=== PATIENT | female | born 1995 | race Caucasian/White ===

== ENCOUNTER 2022-08-18 06:00 | Inpatient (IN) | payer OTHER ==
[2022-08-18] MEDS ORDERED: Ibuprofen 800 MG TAB PO PRN (06:24)
[2022-08-18] MEDS ORDERED: Carboprost 250 MCG/ML AMP IM PRN (06:24)
[2022-08-18] MEDS ORDERED: NS w/ Oxytocin 30 units 500 ML IV SCH ×3 (06:24→18:31)
[2022-08-18] MEDS ORDERED: hydrALAZINE 20 MG/ML VIAL SLOW IVP PRN ×2 (06:24→18:31)
[2022-08-18] MEDS ORDERED: Butorphanol Tartrate 1 MG/ML VIAL SLOW IVP PRN (06:24)
[2022-08-18] MEDS ORDERED: Acetaminophen/Codeine 30-300mg Tablet PO PRN (06:24)
[2022-08-18] MEDS ORDERED: Promethazine HCl 25 MG/ML VIAL IM PRN ×2 (06:24→18:31)
[2022-08-18] MEDS ORDERED: Acetaminophen 500 MG TAB PO PRN (06:24)
[2022-08-18] MEDS ORDERED: Lidocaine 1% (PF) 30 ML VIAL SC PRN (06:24)
[2022-08-18] MEDS ORDERED: Methylergonovine 0.2 MG/ML VIAL IM PRN (06:24)
[2022-08-18] MEDS ORDERED: Ondansetron PF 4 MG/2 ML Vial IVP PRN ×2 (06:24→18:31)
[2022-08-18] MEDS ORDERED: HYDROcodone/Acetaminophen 5/325 mg Tablet PO PRN ×2 (06:24→18:31)
[2022-08-18] MEDS ORDERED: Diphenoxylate HCl/Atropine Tablet PO PRN (06:24)
[2022-08-18] MEDS ORDERED: Lactated Ringer's 1,000 ML IV SCH (06:24)
[2022-08-18 07:53] VITALS: BMI 29.3
[2022-08-18] MEDS ORDERED: NS w/ Oxytocin 30 units 500 ML ONE (07:55)
[2022-08-18] MEDS ORDERED: ePHEDrine Sulfate 50 MG/10 ML VIAL ONE (08:00)
[2022-08-18] MEDS ORDERED: Bupivacaine HCl 0.5%/Epinephrine 1:200,000/PF 30 ml Vial ONE (08:00)
[2022-08-18 09:07] LABS: Hemoglobin 11.1 g/dL (12.0-15.5); Mean Corpuscular HGB CONC 32.9 g/dL (32.0-36.0); Mean Corpuscular Hemoglobin 26.4 pg (27.0-33.0); Mean Platelet Volume 9.6 fl (7.4-10.4); Platelet Count 241 10x3/uL (150-450); RBC Distribution Width 13.6 % (11.5-14.5); Red Blood Cell (RBC) Count 4.21 10x6/uL (3.90-5.03); White Blood Cell (WBC) Count 9.7 10x3/uL (3.5-10.5)
[2022-08-18 09:39] LABS: SARS-CoV-2 NAA Rapid Test Not Detected (NotDetected)
[2022-08-18 09:43] LABS: HBSAg Index 0.14 S/CO (0-0.99); HIV (1/2) Antibody/Antigen Non-Reactive (NonReactive); HIV 1/2 INDEX 0.15 S/CO (<1.00); Hep B Surf Ag Non-Reactive S/CO (NonReactive)
[2022-08-18 09:44] LABS: Syphilis Antibody Nonreactive (Nonreactive); Syphilis Antibody Index 0.02 S/CO (<1.00 Non-Reactive)
[2022-08-18] MEDS ORDERED: Fentanyl 2 mcg/Bup 0.1% Cadd 100 ML ONE (12:37)
[2022-08-18] MEDS ORDERED: Butorphanol Tartrate 1 MG/ML VIAL ONE (12:44)
[2022-08-18] MEDS ORDERED: Bisacodyl 10 MG SUPP PR PRN (18:31)
[2022-08-18] MEDS ORDERED: Boostrix 0.5 ML (Tdap) VIAL (>/=7 yrs of age) IM ONE (18:31)
[2022-08-18] MEDS ORDERED: Lanolin Ointment 7 GM TUBE TOP PRN (18:31)
[2022-08-18] MEDS ORDERED: Milk Of Magnesia 30 ML UDCUP PO PRN (18:31)
[2022-08-18] MEDS ORDERED: Benzocaine-Menthol 82.5 ML CAN TOP PRN (18:31)
[2022-08-18] MEDS ORDERED: diphenhydrAMINE 25 MG CAP PO PRN (18:31)
[2022-08-18] MEDS ORDERED: Ibuprofen 800 MG TAB PO SCH ×2 (19:45→22:00)
[2022-08-18] MEDS: Docusate 100 MG CAP PO SCH (21:30)
[2022-08-19] MEDS: Ibuprofen 800 MG TAB PO SCH ×3 (04:38→20:35)
[2022-08-19] MEDS: HYDROcodone/Acetaminophen 5/325 mg Tablet PO PRN ×2 (06:31→17:38)
[2022-08-19] MEDS: Ferrous Sulfate 325 MG TAB PO SCH ×2 (07:13→16:01)
[2022-08-19] MEDS: Prenatal Vitamin 1 TAB PO SCH (08:15)
[2022-08-19] MEDS: Docusate 100 MG CAP PO SCH ×2 (08:15→20:35)
[2022-08-20] MEDS: HYDROcodone/Acetaminophen 5/325 mg Tablet PO PRN ×2 (04:12→14:40)
[2022-08-20] MEDS: Ibuprofen 800 MG TAB PO SCH ×2 (05:00→12:03)
[2022-08-20] MEDS: Ferrous Sulfate 325 MG TAB PO SCH ×2 (07:30→18:24)
[2022-08-20 07:43] VITALS: BP 112/62; TEMP 98.4
[2022-08-20] MEDS: Prenatal Vitamin 1 TAB PO SCH (08:40)
[2022-08-20] MEDS: Docusate 100 MG CAP PO SCH (08:40)
== END 2022-08-20 18:15 | disposition home or self-care (01) | DRG 807 ==
LOC: CSHLD 06:16 → CSHPP 20:30
PROVIDERS: ADMIT Family Medicine; ATTEND Family Medicine
PROC: 10E0XZZ Delivery of Products of Conception, External Approach (ICD-10-PCS; principal; 2022-08-18)
PROC: 10907ZC Drainage of Amniotic Fluid, Therapeutic from Products of Conception, Via Natural or Artificial Opening (ICD-10-PCS; 2022-08-18)
PROC: 3E033VJ Introduction of Other Hormone into Peripheral Vein, Percutaneous Approach (ICD-10-PCS; 2022-08-18)
DX: O80 Encounter for full-term uncomplicated delivery (principal); Z37.0 Single live birth; Z20.822 Contact with and (suspected) exposure to COVID-19; Z3A.39 39 weeks gestation of pregnancy; Z88.1 Allergy status to other antibiotic agents
CPT/HCPCS: 36415; 51702; 85027; 86780; 86850; 86900; 86901; 87340; 87389; U0002